=== PATIENT | female | born 1975 | race Hispanic/Latino ===

== ENCOUNTER 2018-07-02 16:10 | Emergency (ER) | payer OTHER ==
[~2018-07-02] VITALS: Ht 160 cm; Wt 83.9 kg
--- OUTSIDE RECORDS SUMMARY | 2018-07-02 16:13 | XMS REPORT | Continuity of Care Document ---
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 [facility] 626.2 - EXCESSIVE MENST Active 06/26/2014 [facility] [place] Anemia Resolved Problem 07/22/2016 [facility] Obesity Active Problem 07/22/2016 [facility] Colon polyps Resolved Problem 07/22/2016 [facility] Apnea, sleep Resolved Problem 07/22/2016 [facility] Medications Medication Details Route Status Patient Instructions Ordering Provider Order Date Source Meperidine 12.5 mg, Route: IVP, Q30Min, Dosing Weight 86.818, kg, PRN Other -See Comment, For shivering, Start date: 07/19/16 10:03:00 CDT, Duration: 2 doses or times, Stop date: Limited # of times No Longer Active 07/19/2016 [facility] Promethazine 6.25 mg, Route: IVPB, ONCE, Dosing Weight 86.818, kg, PRN Nausea & Vomiting, Start date: 07/19/16 10:03:00 CDT No Longer Active 07/19/2016 [facility] Ondansetron 4 mg, Route: IVP, ONCE, Dosing Weight 86.818, kg, PRN Nausea & Vomiting, Start date: 07/19/16 10:03:00 CDT No Longer Active 07/19/2016 [facility] Oxycodone 5 mg, Route: PO, Drug form: TAB, Q4H, Dosing Weight 86.818, kg, PRN Pain Score 4-6, Start date: 07/19/16 10:03:00 CDT, Duration: 30 day, Stop date: 08/18/16 10:02:00 CDT No Longer Active 07/19/2016 [facility] Hydromorphone 0.5 mg, Route: IVP, Q5Min, Dosing Weight 86.818, kg, PRN Pain Score 7-10, Start date: 07/19/16 10:03:00 CDT, Duration: 4 doses or times, Stop date: Limited # of times No Longer Active 07/19/2016 [facility] Flumazenil 0.2 mg, Route: IVP, PRN, Dosing Weight 86.818, kg, PRN Benzodiazepine Reversal, Initial dose, Start date: 07/19/16 10:03:00 CDT, Duration: 30 day, Stop date: 08/18/16 10:02:00 CDT No Longer Active 07/19/2016 [facility] Diphenhydramine 12.5 mg, Route: IVP, Drug form: INJ, Q6H, Dosing Weight 86.818, kg, PRN Itching, Start date: 07/19/16 10:03:00 CDT, Duration: 30 day, Stop date: 08/18/16 10:02:00 CDT No Longer Active 07/19/2016 [facility] Albuterol 0.83 MG/ML Inhalant Solution 2.49 mg, Route: NEB, Q20Min, Dosing Weight 86.818, kg, PRN Wheezing, Priority: STAT, Start date: 07/19/16 10:03:00 CDT, Duration: 30 day, Stop date: 08/18/16 10:02:00 CDT No Longer Active 07/19/2016 [facility] Naloxone 0.4 mg, Route: IVP, Q2MIN, Dosing Weight 86.818, kg, PRN Narcotic Reversal, Start date: 07/19/16 10:03:00 CDT, Duration: 8 doses or times, Stop date: Limited # of times No Longer Active 07/19/2016 [facility] Acetaminophen 1,000 mg, Route: PO, Drug form: TAB, ONCE, Dosing Weight 86.818, kg, PRN Pain Score 1-3, Start date: 07/19/16 10:03:00 CDT, Duration: 1 doses or times, Stop date: Limited # of times No Longer Active 07/19/2016 [facility] esmolol 10 mg, Route: IVP, Q5Min, Dosing Weight 86.818, kg, PRN Other -See Comment, Start date: 07/19/16 10:03:00 CDT, Duration: 5 doses or times, Stop date: Limited # of times No Longer Active 07/19/2016 [facility] Labetalol 10 mg, Route: IVP, Q5Min, Dosing Weight 86.818, kg, PRN Elevated BP, Start date: 07/19/16 10:03:00 CDT, Duration: 5 doses or times, Stop date: Limited # of times No Longer Active 07/19/2016 [facility] Calcium Chloride 0.0014 MEQ/ML / Potassium Chloride 0.004 MEQ/ML / Sodium Chloride 0.103 MEQ/ML / Sodium Lactate 0.028 MEQ/ML Injectable Solution 1,000 mL, Rate: 125 ml/hr, Infuse over: 8 hr, Route: IV, Dosing Weight 86.818 kg, Total Volume: 1,000, Start date: 07/19/16 10:03:00 CDT, Duration: 30 day, Stop date: 08/18/16 10:02:00 CDT No Longer Active 07/19/2016 [facility] Hydralazine 10 mg, Route: IVP, Q20Min, Dosing Weight 86.818, kg, PRN Elevated BP, Start date: 07/19/16 10:03:00 CDT, Duration: 2 doses or times, Stop date: Limited # of times No Longer Active 07/19/2016 [facility] Lactated Ringers Injection IV 500 mL 500 mL, Rate: 25 ml/hr, Infuse over: 20 hr, Route: IV, Dosing Weight 86.818 kg, Total Volume: 500, Start date: 07/19/16 10:01:00 CDT, Duration: 30 day, Stop date: 08/18/16 10:00:00 CDT No Longer Active 07/19/2016 [facility] Albuterol 0.833 MG/ML / Ipratropium [place] 0.167 MG/ML Inhalant Solution 3 mL, Route: NEB, Dosing Weight 86.818, kg, ONCE, STAT, Start date: 07/19/16 9:59:00 CDT, Stop date: 07/19/16 9:59:00 CDT Inactive 07/19/2016 [facility] Calcium Chloride 0.0014 MEQ/ML / Potassium Chloride 0.004 MEQ/ML / Sodium Chloride 0.103 MEQ/ML / Sodium Lactate 0.028 MEQ/ML Injectable Solution 1,000 mL, Rate: 25 ml/hr, Infuse over: 40 hr, Route: IV, Dosing Weight 86.818 kg, Total Volume: 1,000, Start date: 07/19/16 9:59:00 CDT, Duration: 30 day, Stop date: 08/18/16 9:58:00 CDT Inactive 07/19/2016 [facility] hydromorphone (ANES) Route: IV, Drug form: INJ, ONCE, Stop date: 07/19/16 9:56:00 CDT Inactive 07/19/2016 [facility] ketOROLAC (ANES) IV, ONCE Inactive 07/19/2016 [facility] dexamethasone (ANES) Route: IV, Drug form: INJ, ONCE, Stop date: 07/19/16 9:56:00 CDT Inactive 07/19/2016 [facility] fentaNYL (ANES) Route: IV, Drug form: INJ, ONCE, Stop date: 07/19/16 9:56:00 CDT Inactive 07/19/2016 [facility] lidocaine (ANES) Route: IV, Drug form: INJ, ONCE, Stop date: 07/19/16 9:56:00 CDT Inactive 07/19/2016 [facility] propofol (ANES) Route: IV, Drug form: INJ, ONCE, Stop date: 07/19/16 9:56:00 CDT Inactive 07/19/2016 [facility] midazolam (ANES) Route: IV, Drug form: SOLN, ONCE, Stop date: 07/19/16 9:56:00 CDT Inactive 07/19/2016 [facility] ondansetron (ANES) Route: IV, Drug form: INJ, ONCE, Stop date: 07/19/16 9:56:00 CDT Inactive 07/19/2016 [facility] phenylephrine (ANES) Route: IV, Drug form: INJ, ONCE, Stop date: 07/19/16 9:52:00 CDT Inactive 07/19/2016 [facility] LR 500 ml INJ (ANES) Route: IV, Total Volume: 500, Start date: 07/19/16 9:07:00 CDT, Stop date: 07/19/16 10:07:00 CDT Inactive 07/19/2016 [facility] Ketorolac Tromethamine 10 MG Oral Tablet 10 mg=1 tab, PO, Q6H, PRN Pain, # 20 tab, 0 Refill(s) Active 07/19/2016 [facility] Exparel 20 mL, Route: InFILtration(local), Drug Form: INJ, Dosing Weight 86.818, kg, ONCE, For Hemorrhoidectomy, Start date: 07/19/16 7:14:00 CDT, Stop date: 07/19/16 7:14:00 CDTNotes: (Same as: Exparel) NOT FOR IV use Postoperative analgesia: Infiltration (local): Dose is based on surgical site and volume required to cover the area (in general, the maximum total dose is 266 mg). Bunionectomy: 7 mL into the tissues surrounding the osteotomy and 1 mL into the subcutaneous tissue of the surgical site (total dose=8 mL [106 mg]) Hemorrhoidectomy: 30 mL (20 mL vial diluted with 10 mL NS) divided and administered as 6 injections of 5 mL each (total dose=30 mL [266 mg]) Inactive 07/19/2016 [facility] Allergies, Adverse Reactions, Alerts Substance Category Reaction Severity Reaction type Status Date Reported Comments Source aspirin Assertion Severe Drug allergy Active [facility] codeine Assertion Severe Drug allergy Active [facility] iodine Assertion Severe Drug allergy Active [facility] penicillins Assertion Severe Drug allergy Active [facility] Tylenol Assertion Moderate Drug allergy Active [facility] Immunizations Immunization Date Given Site Status Last Updated Comments Source Results Order Name Results Value Reference Range Date Interpretation Comments Source CHEM PANEL eGFR 113 mL/min/1.73m2 07/11/2016 Result Comment: The eGFR is calculated using the CKD-EPI formula. In most young, healthy individuals the eGFR will be >90 mL/min/1.73m2. The eGFR declines with age. An eGFR of 60-89 may be normal in some populations, particularly the elderly, for whom the CKD-EPI formula has not been extensively validated. Use of the eGFR is not recommended in the following populations: Individuals with unstable creatinine concentrations, including patients and those with serious co-morbid conditions. Patients with extremes in muscle mass or diet. The data above are obtained from the National Kidney Disease Education Program (NKDEP) which additionally recommends that when the eGFR is used in patients with extremes of body mass index for purposes of drug dosing, the eGFR should be multiplied by the estimated BMI. [facility] CHEM PANEL Glucose Lvl 85 mg/dL 70 - 99 07/11/2016 [facility] CHEM PANEL BUN 8 mg/dL 7 - 22 07/11/2016 [facility] CHEM PANEL Potassium Lvl 3.6 meq/L 3.5 - 5.1 07/11/2016 [facility] CHEM PANEL Creatinine Lvl 0.60 mg/dL 0.50 - 1.40 07/11/2016 [facility] CHEM PANEL Sodium Lvl 138 meq/L 135 - 145 07/11/2016 [facility] CHEM PANEL CO2 26 meq/L 24 - 32 07/11/2016 [facility] CHEM PANEL Chloride Lvl 105 meq/L 95 - 109 07/11/2016 [facility] CHEM PANEL Albumin Lvl 3.7 g/dL 3.5 - 5.0 07/11/2016 [facility] CHEM PANEL Calcium Lvl 8.1 mg/dL 8.5 - 10.5 07/11/2016 [facility] CHEM PANEL Total Protein 7.9 g/dL 6.4 - 8.4 07/11/2016 [facility] CHEM PANEL ALT 14 unit/L 0 - 65 07/11/2016 [facility] CHEM PANEL AST 13 unit/L 0 - 37 07/11/2016 [facility] CHEM PANEL Alk Phos 80 unit/L 39 - 136 07/11/2016 [facility] CHEM PANEL Bili Total 0.2 mg/dL 0.2 - 1.3 07/11/2016 [facility] CHEM PANEL B/C Ratio 13 6 - 25 07/11/2016 [facility] CHEM PANEL Globulin 4.2 g/dL 2.7 - 4.2 07/11/2016 [facility] CHEM PANEL A/G Ratio 0.9 0.7 - 1.6 07/11/2016 [facility] CHEM PANEL AGAP 10.6 meq/L 10.0 - 20.0 07/11/2016 [facility] HEMATOLOGY Hgb 9.0 g/dL 12.0 - 16.0 07/11/2016 [facility] HEMATOLOGY Hct 28.9 % 36.0 - 48.0 07/11/2016 [facility] URINE AND STOOL UA Urobilinogen <=1.0 mg/dL 0.1 - 1.0 07/11/2016 [facility] URINE AND STOOL UA Color Yellow *NA* (07/11/16 11:57 AM) Yellow 07/11/2016 [facility] URINE AND STOOL UA Leuk Est Negative (07/11/16 11:57 AM) Negative 07/11/2016 [facility] URINE AND STOOL UA Bili Negative *NA* (07/11/16 11:57 AM) Negative 07/11/2016 [facility] URINE AND STOOL UA Ketones Negative mg/dL Negative mg/dL 07/11/2016 [facility] URINE AND STOOL UA Nitrite Negative (07/11/16 11:57 AM) Negative 07/11/2016 [facility] URINE AND STOOL UA Blood Negative (07/11/16 11:57 AM) Negative 07/11/2016 [facility] URINE AND STOOL UA Sq Epi Many /LPF Few /LPF 07/11/2016 [facility] URINE AND STOOL UA Glucose Negative mg/dL Negative mg/dL 07/11/2016 [facility] URINE AND STOOL UA Spec Grav 1.021 <=1.030 07/11/2016 [facility] URINE AND STOOL UA Turbidity Marked *ABN* (07/11/16 11:57 AM) Clear 07/11/2016 [facility] URINE AND STOOL UA Protein Negative mg/dL Negative mg/dL 07/11/2016 [facility] URINE AND STOOL UA pH 7.0 5.0 - 8.0 07/11/2016 [facility] URINE AND STOOL UA RBC 1 /HPF 0 - 2 07/11/2016 [facility] URINE AND STOOL UA WBC 1 /HPF 0 - 5 07/11/2016 [facility] URINE AND STOOL UA Mucus Few /LPF None Seen /LPF 07/11/2016 [facility] Pelvis w Pelvis Transvaginal US Pelvis w Pelvis Transvaginal US PELVIC ULTRASOUND CLINICAL HISTORY: Excessive menses COMPARISON IMAGING: None. TECHNIQUE: Real time transabdominal and transvaginal sonography was performed by an chief technologist. Flight Coordinator static images were submitted for review. FINDINGS: Uterus: Measures 9.8 x 4.8 x 6.2 cm. Endometrial stripe is 16 mm in thickness, upper limits of normal. No distinct uterine mass is identified. Small amount of free pelvic fluid is seen in the cul-de-sac, likely physiologic. Adnexa: Neither ovary is visualized. No evidence of adnexal masses bilaterally. IMPRESSION: 1. Endometrial stripe measures upper limits of normal. No evidence of endometrial mass. 2. Nonvisualization of the bilateral ovaries. 06/30/2014 - - Read by: Eva Leon MD Dictated Date/time: 06/30/14 14:09 Electronically Signed by: Eva Leon MD 06/30/14 14:11 FINAL REPORT [facility] [place] Vital Signs Vital Sign Value Date Comments Source Systolic (mm Hg) 106 07/19/2016 [facility] Diastolic (mm Hg) 40 07/19/2016 [facility] Respitory Rate 12 07/19/2016 [facility] Systolic (mm Hg) 110 07/19/2016 [facility] Diastolic (mm Hg) 49 07/19/2016 [facility] Respitory Rate 11 07/19/2016 [facility] Systolic (mm Hg) 102 07/19/2016 [facility] Diastolic (mm Hg) 71 07/19/2016 [facility] Respitory Rate 20 07/19/2016 [facility] Heart Rate 85 07/19/2016 [facility] BMI Calculated 33.9 07/11/2016 [facility] Weight 86.818 07/11/2016 [facility] Height 160.02 cm 07/11/2016 [facility] Heart Rate 69 07/11/2016 [facility] Temperature Oral (F) 98.3 F 07/11/2016 [facility] Encounters Location Location Details Encounter Type Encounter Number Reason For Visit Attending Provider ADM Date DC Date Status Source [facility] [place] [facility] [id number] Luisa Ritter 06/30/2014 07/01/2014 [facility] [place] Out[facility] [id number] THEODOROS VOLOYIANNIS 06/15/2016 Active [facility] Outpatient [id number] THEODOROS VOLOYIANNIS 07/19/2016 Active [facility] Day Surgery [id number] Theodoros Voloyiannis 07/19/2016 07/19/2016 [facility] Outpatient [id number] IVORY CARTER 07/21/2016 [facility] Outpatient [id number] IVORY CARTER 08/02/2016 Active [facility] Outpatient [id number] IVORY CARTER 11/08/2016 Active [facility] Procedures Procedure Code Date Perfomer Comments Source Operation<sup>1</sup> [id number] 07/19/2016 Transanal hemorrhoidal dearterialization [facility] Ablation<sup>2</sup> [id number] Vaginal [facility] Colonoscopy [id number] [facility] Operation<sup>3</sup> [id number] Gastric Sleeve [facility] Tubal ligation [id number] [facility]
--- OUTSIDE RECORDS SUMMARY | 2018-07-02 16:13 | XMS REPORT | Summary of Care ---
Author Author [facility] Organization [facility] Address Unknown Phone Unavailable Encounter JONO Trujillo(LIV) [id number] Date(s): 07/19/16 - 07/19/16 [facility] [address] [place] [address]- [phone] Discharge Disposition: Home or Self Care Attending Physician: Gurinder Small MD Referring Physician: Gurinder Small MD Vital Signs 1 2 3 Most recent to oldest [Reference Range]: 160.02 cm (07/11/16 11:36 AM) Height 98.3 DegF (07/11/16 11:36 AM) Temperature Oral [96.4-99.1 DegF] 106/40 mmHg (07/19/16 12:15 PM) 110/49 mmHg (07/19/16 11:00 AM) 102/71 mmHg (07/19/16 10:45 AM) Blood Pressure [90-140/60-90 mmHg] 12 BRMIN *LOW* (07/19/16 12:15 PM) 11 BRMIN *LOW* (07/19/16 11:00 AM) 20 BRMIN (07/19/16 10:45 AM) Respiratory Rate [14-20 BRMIN] 85 bpm (07/19/16 9:25 AM) 69 bpm (07/11/16 11:36 AM) Peripheral Pulse Rate [60-100 bpm] 86.818 kg (07/11/16 11:36 AM) Weight 33.9 m2 (07/11/16 11:36 AM) Body Mass Index Problem List Condition Effective Dates Status Health Status Informant Anemia(Confirmed) Resolved Obesity(Confirmed) Active Colon Resolved polyps(Confirmed) Apnea, Resolved sleep(Confirmed) Allergies, Adverse Reactions, Alerts Substance Reaction Severity Status aspirin Severe Active codeine Severe Active iodine Severe Active penicillins Severe Active Tylenol Moderate Active Medications albuterol-ipratropium 2.5-0.5 mg inhalation solution 3 mL, Route: NEB, Dosing Weight 86.818, kg, ONCE, STAT, Start date: 07/19/16 9:5 9:00 CDT, Stop date: 07/19/16 9:59:00 CDT Start Date: 07/19/16 Stop Date: 07/19/16 Status: Ordered ANES acetaminophen 1,000 mg, Route: PO, Drug form: TAB, ONCE, Dosing Weight 86.818, kg, PRN Pain Sc ore 1-3, Start date: 07/19/16 10:03:00 CDT, Duration: 1 doses or times, Stop jagdeep e: Limited # of times Start Date: 07/19/16 Stop Date: 07/20/16 Status: Discontinued ANES albuterol 0.083% inhalation solution 2.49 mg, Route: NEB, Q20Min, Dosing Weight 86.818, kg, PRN Wheezing, Priority: S TAT, Start date: 07/19/16 10:03:00 CDT, Duration: 30 day, Stop date: 08/18/16 10 :02:00 CDT Start Date: 07/19/16 Stop Date: 07/20/16 Status: Discontinued ANES diphenhydrAMINE 12.5 mg, Route: IVP, Drug form: INJ, Q6H, Dosing Weight 86.818, kg, PRN Itching, Start date: 07/19/16 10:03:00 CDT, Duration: 30 day, Stop date: 08/18/16 10:02: 00 CDT Start Date: 07/19/16 Stop Date: 07/20/16 Status: Discontinued ANES esmolol 10 mg, Route: IVP, Q5Min, Dosing Weight 86.818, kg, PRN Other -See Comment, Star t date: 07/19/16 10:03:00 CDT, Duration: 5 doses or times, Stop date: Limited # of times Start Date: 07/19/16 Stop Date: 07/20/16 Status: Discontinued ANES flumazenil 0.2 mg, Route: IVP, PRN, Dosing Weight 86.818, kg, PRN Benzodiazepine Reversal, Initial dose, Start date: 07/19/16 10:03:00 CDT, Duration: 30 day, Stop date: 10:02:00 CDT Start Date: 07/19/16 Stop Date: 07/20/16 Status: Discontinued ANES hydrALAZINE 10 mg, Route: IVP, Q20Min, Dosing Weight 86.818, kg, PRN Elevated BP, Start date : 07/19/16 10:03:00 CDT, Duration: 2 doses or times, Stop date: Limited # of rubén es Start Date: 07/19/16 Stop Date: 07/20/16 Status: Discontinued ANES HYDROmorphone 0.5 mg, Route: IVP, Q5Min, Dosing Weight 86.818, kg, PRN Pain Score 7-10, Start date: 07/19/16 10:03:00 CDT, Duration: 4 doses or times, Stop date: Limited # of times Start Date: 07/19/16 Stop Date: 07/20/16 Status: Discontinued ANES labetalol 10 mg, Route: IVP, Q5Min, Dosing Weight 86.818, kg, PRN Elevated BP, Start date: 07/19/16 10:03:00 CDT, Duration: 5 doses or times, Stop date: Limited # of times Start Date: 07/19/16 Stop Date: 07/20/16 Status: Discontinued ANES meperidine 12.5 mg, Route: IVP, Q30Min, Dosing Weight 86.818, kg, PRN Other -See Comment, F or shivering, Start date: 07/19/16 10:03:00 CDT, Duration: 2 doses or times, Sto p date: Limited # of times Start Date: 07/19/16 Stop Date: 07/20/16 Status: Discontinued ANES naloxone 0.4 mg, Route: IVP, Q2MIN, Dosing Weight 86.818, kg, PRN Narcotic Reversal, Star t date: 07/19/16 10:03:00 CDT, Duration: 8 doses or times, Stop date: Limited # of times Start Date: 07/19/16 Stop Date: 07/20/16 Status: Discontinued ANES ondansetron 4 mg, Route: IVP, ONCE, Dosing Weight 86.818, kg, PRN Nausea & Vomiting, Start date: 07/19/16 10:03:00 CDT Start Date: 07/19/16 Stop Date: 07/20/16 Status: Discontinued ANES oxyCODONE 5 mg, Route: PO, Drug form: TAB, Q4H, Dosing Weight 86.818, kg, PRN Pain Score 4 -6, Start date: 07/19/16 10:03:00 CDT, Duration: 30 day, Stop date: 08/18/16 10: 02:00 CDT Start Date: 07/19/16 Stop Date: 07/20/16 Status: Discontinued ANES promethazine 6.25 mg, Route: IVPB, ONCE, Dosing Weight 86.818, kg, PRN Nausea & Vomiting, Start date: 07/19/16 10:03:00 CDT Start Date: 07/19/16 Stop Date: 07/20/16 Status: Discontinued dexamethasone (ANES) Route: IV, Drug form: INJ, ONCE, Stop date: 07/19/16 9:56:00 CDT Start Date: 07/19/16 Stop Date: 07/19/16 Status: Completed Exparel 20 mL, Route: InFILtration(local), Drug Form: INJ, Dosing Weight 86.818, kg, ONC E, For Hemorrhoidectomy, Start date: 07/19/16 7:14:00 CDT, Stop date: 07/19/16 7 :14:00 CDT Notes: (Same as: Exparel) NOT FOR IV use Postoperative analgesia: Infi ltration (local): Dose is based on surgical site and volume required to cover th e area (in general, the maximum total dose is 266 mg).Bunionectomy: 7 mL into th e tissues surrounding the osteotomy and 1 mL into the subcutaneous tissue of the surgical site (total dose=8 mL [106 mg])Hemorrhoidectomy: 30 mL (20 mL vial dil uted with 10 mL NS) divided and administered as 6 injections of 5 mL each (total dose=30 mL [266 mg]) Start Date: 07/19/16 Stop Date: 07/19/16 Status: Ordered fentaNYL (ANES) Route: IV, Drug form: INJ, ONCE, Stop date: 07/19/16 9:56:00 CDT Start Date: 07/19/16 Stop Date: 07/19/16 Status: Completed hydromorphone (ANES) Route: IV, Drug form: INJ, ONCE, Stop date: 07/19/16 9:56:00 CDT Start Date: 07/19/16 Stop Date: 07/19/16 Status: Completed ketOROLAC (ANES) IV, ONCE Start Date: 07/19/16 Stop Date: 07/19/16 Status: Completed ketOROLAC 10 mg oral tablet 10 mg=1 tab, PO, Q6H, PRN Pain, # 20 tab, 0 Refill(s) Start Date: 07/19/16 Stop Date: 07/24/16 Status: Ordered Lactated Ringers Injection IV 1000 mL 1,000 mL, Rate: 125 ml/hr, Infuse over: 8 hr, Route: IV, Dosing Weight 86.818 kg , Total Volume: 1,000, Start date: 07/19/16 10:03:00 CDT, Duration: 30 day, Stop date: 08/18/16 10:02:00 CDT Start Date: 07/19/16 Stop Date: 07/20/16 Status: Discontinued Lactated Ringers Injection IV 1000 mL 1,000 mL, Rate: 25 ml/hr, Infuse over: 40 hr, Route: IV, Dosing Weight 86.818 kg , Total Volume: 1,000, Start date: 07/19/16 9:59:00 CDT, Duration: 30 day, Stop date: 08/18/16 9:58:00 CDT Start Date: 07/19/16 Stop Date: 07/19/16 Status: Deleted Lactated Ringers Injection IV 500 mL 500 mL, Rate: 25 ml/hr, Infuse over: 20 hr, Route: IV, Dosing Weight 86.818 kg, Total Volume: 500, Start date: 07/19/16 10:01:00 CDT, Duration: 30 day, Stop jagdeep e: 08/18/16 10:00:00 CDT Start Date: 07/19/16 Stop Date: 07/20/16 Status: Discontinued lidocaine (ANES) Route: IV, Drug form: INJ, ONCE, Stop date: 07/19/16 9:56:00 CDT Start Date: 07/19/16 Stop Date: 07/19/16 Status: Completed LR 500 ml INJ (ANES) Route: IV, Total Volume: 500, Start date: 07/19/16 9:07:00 CDT, Stop date: 07/19 10:07:00 CDT Start Date: 07/19/16 Stop Date: 07/19/16 Status: Completed midazolam (ANES) Route: IV, Drug form: SOLN, ONCE, Stop date: 07/19/16 9:56:00 CDT Start Date: 07/19/16 Stop Date: 07/19/16 Status: Completed ondansetron (ANES) Route: IV, Drug form: INJ, ONCE, Stop date: 07/19/16 9:56:00 CDT Start Date: 07/19/16 Stop Date: 07/19/16 Status: Completed phenylephrine (ANES) Route: IV, Drug form: INJ, ONCE, Stop date: 07/19/16 9:52:00 CDT Start Date: 07/19/16 Stop Date: 07/19/16 Status: Completed propofol (ANES) Route: IV, Drug form: INJ, ONCE, Stop date: 07/19/16 9:56:00 CDT Start Date: 07/19/16 Stop Date: 07/19/16 Status: Completed Results ELECTROLYTES Most recent to 1 oldest [Reference Range]: Sodium Lvl [135-145 138 mEq/L mEq/L] (07/11/16 11:57 AM) Potassium Lvl 3.6 mEq/L [3.5-5.1 mEq/L] (07/11/16 11:57 AM) Chloride Lvl [95-109 105 mEq/L mEq/L] (07/11/16 11:57 AM) CO2 [24-32 mEq/L] 26 mEq/L (07/11/16 11:57 AM) AGAP [10.0-20.0 10.6 mEq/L mEq/L] (07/11/16 11:57 AM) CHEM PANEL Most recent to 1 oldest [Reference Range]: Creatinine Lvl 0.60 mg/dL [0.50-1.40 mg/dL] (07/11/16 11:57 AM) eGFR 113 mL/min/1.73m2 1 *NA* (07/11/16 11:57 AM) BUN [7-22 mg/dL] 8 mg/dL (07/11/16 11:57 AM) B/C Ratio [6-25] 13 (07/11/16 11:57 AM) Glucose Lvl [70-99 85 mg/dL mg/dL] (07/11/16:57 AM) Total Protein 7.9 g/dL [6.4-8.4 g/dL] (07/11/16 11:57 AM) Albumin Lvl [3.5-5.0 3.7 g/dL g/dL] (07/11/16:57 AM) Globulin [2.7-4.2 4.2 g/dL g/dL] (07/11/16 11:57 AM) A/G Ratio [0.7-1.6] 0.9 (07/11/16:57 AM) Calcium Lvl 8.1 mg/dL [8.5-10.5 mg/dL] *LOW* (07/11/16:57 AM) ALT [0-65 unit/L] 14 unit/L (07/11/16:57 AM) AST [0-37 unit/L] 13 unit/L (07/11/16 11:57 AM) Alk Phos [39-136 80 unit/L unit/L] (07/11/16 11:57 AM) Bili Total [0.2-1.3 0.2 mg/dL mg/dL] (07/11/16 11:57 AM) 1Result Comment: The eGFR is calculated using the [...] from the National Kid[employer] Education Program ( NKDEP) which additionally recommends that when the eGFR is used in patients with extremes of body mass index for purposes of drug dosing, the eGFR should be mul tiplied by the estimated BMI. URINE AND STOOL Most recent to 1 oldest [Reference Range]: UA Turbidity [Clear] Marked *ABN* (07/11/16 11:57 AM) UA Color [Yellow] Yellow *NA* (07/11/16 11:57 AM) UA pH [5.0-8.0] 7.0 (07/11/16 11:57 AM) UA Spec Grav 1.021 [<=1.030] (07/11/16 11:57 AM) UA Glucose [Negative Negative mg/dL mg/dL] *NA* (07/11/16 11:57 AM) UA Blood [Negative] Negative (07/11/16 11:57 AM) UA Ketones [Negative Negative mg/dL mg/dL] *NA* (07/11/16 11:57 AM) UA Protein [Negative Negative mg/dL mg/dL] (07/11/16 11:57 AM) UA Urobilinogen <=1.0 mg/dL [0.1-1.0 mg/dL] *NA* (07/11/16 11:57 AM) UA Bili [Negative] Negative *NA* (07/11/16 11:57 AM) UA Leuk Est Negative [Negative] (07/11/16 11:57 AM) UA Nitrite Negative [Negative] (07/11/16 11:57 AM) UA WBC [0-5 /HPF] 1 /HPF (07/11/16 11:57 AM) UA RBC [0-2 /HPF] 1 /HPF (07/11/16 11:57 AM) UA Sq Epi [Few /LPF] Many /LPF *ABN* (07/11/16 11:57 AM) UA Mucus [None Seen Few /LPF /LPF] *NA* (07/11/16 11:57 AM) HEMATOLOGY Most recent to 1 oldest [Reference Range]: Hgb [12.0-16.0 g/dL] 9.0 g/dL *LOW* (07/11/16 11:57 AM) Hct [36.0-48.0 %] 28.9 % *LOW* (07/11/16 11:57 AM) Immunizations No data available for this section Procedures Procedure Date Related Diagnosis Body Site Operation1 07/19/16 Ablation2 Colonoscopy Operation3 Tubal ligation 1Transanal hemorrhoidal dearterialization 2Vaginal 3Gastric Sleeve Social History Social History Type Response Smoking Status Never smoker; Exposure to Tobacco Smoke None; Cigarette Smoking Last 365 Days No; Reg Smoking Cessation Counseling No Assessment and Plan Extracted from: Title: Clinical Document Author: Gurinder Small MD Date: 07/19/16 PREOPERATIVE DIAGNOSIS: Rectal bleeding internal hemorrhoid with prolapse and bleeding. POSTOPERATIVE DIAGNOSIS: Rectal bleeding internal hemorrhoid with prolapse and bleeding. PROCEDURE Transanal hemorrhoidal dearterialization. SURGEON: Dr. Small NUTRITIONAL CHEMIST: None ANESTHESIA: General IV FLUIDS: 300 mL URINE OUTPUT: No Mercado. ESTIMATED BLOOD LOSS: 10 cc COMPLICATIONS: None FINDINGS: Grade III internal hemorrhoids and no sites of active bleeding was noted. DISPOSITION: Tolerated the procedure well, extubated in the operating room and transferred to postop anesthesia care unit in stable hemodynamic condition. COUNTS: Needle, sponge and correct x 2. INDICATIONS FOR PROCEDURE: The patient is a 41-year-old woman who presents for a transanal hemorrhoidal dearterialization procedure for chronically prolapsing and bleeding internal hemorrhoids. Informed consent was obtained. All questions were answered to her satisfaction. PROCEDURE IN DETAIL: The patient was brought to the operating room, placed on the table in supine position. General endotracheal anesthesia was induced successfully. Subsequently, the patient was placed on candy canes in the lithotomy position and the perineum was prepped and draped in usual standard sterile fashion. Using the transanal hemorrhoidal dearterialization kit, we identified six arterial signals at 1:00, 3:00, 6:00, 7:00, 9:00 and 11:00 respectively. At 4 cm above the dentate line, we placed a 2-0 Vicryl in a [id number] fashion under Doppler ultrasound guidance and confirmed cessation of the arterial signal in each side. Subsequently, we ran each suture over the prolapsing internal hemorrhoidal mucosa up to a centimeter above the dentate line and incorporating the friable internal hemorrhoids with bleeding. We retracted each hemorrhoid back to the distal rectum and performed a hemorrhoidopexy and mucopexy and confirmed complete hemostasis and a mucopexy of each hemorrhoid. Surgicel was left in place. One vial of Exparel was injected for local anesthesia. The Exparel was diluted with 10 mL of normal saline. The procedure was completed. Extracted from: Title: preop Author: Carolee Gordon, MPH, Date: 07/19/16 [place] Assessment/Plan I recommend to proceed with transanal hemorrhoidal derarterialization (THD) and she desires to proceed The patient agrees to proceed with the procedure. Risks, benefits and alternatives to the procedure were discussed in great detail. The patient will schedule the procedure in the near future. All questions were answered to the patient s satisfaction [3] Addendum by No change in the patient's condition since he was last seen in clinic. Gurinder Bhatt MD on 07/19/2016 07:44 CDT
--- OUTSIDE RECORDS SUMMARY | 2018-07-02 16:13 | XMS REPORT | Summary of Care ---
Author Organization Unknown Address Unknown Phone Unavailable Encounter [facility] Encntr_magui(LIV) [id number] Date(s): 06/30/14 - 06/30/14 [facility] Outpatient Imaging - [address] [phone] Discharge Disposition: Home Physician Attending: Luisa Ritter MD Vital Signs No data available for this section Problem List No data available for this section Allergies, Adverse Reactions, Alerts No data available for this section Medications No data available for this section Results No data available for this section Immunizations No data available for this section Procedures No data available for this section Social History No data available for this section Assessment and Plan No data available for this section
[2018-07-02] MEDS ORDERED: TETANUS/DIPHTHERIA TOX ADULT 0.5 ML SYR IM ONE (16:15)
[2018-07-02] MEDS ORDERED: LIDOCAINE HCL 1% LOCAL INJ 20 ML VIAL INJ ONE (16:15)
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
== END 2018-07-02 17:54 | disposition home or self-care (01) ==
LOC: ER 16:10
DX: S61.412A Laceration without foreign body of left hand, initial encounter (principal); W25.XXXA Contact with sharp glass, initial encounter; Y92.008 Other place in unspecified non-institutional (private) residence as the place of occurrence of the external cause
CPT/HCPCS: 90471; 90714; 99284

== ENCOUNTER 2021-11-24 12:04 | Observation (INO) | payer OTHER ==
[~2021-11-24] VITALS: Ht 160 cm; Wt 85.9 kg
[2021-11-24] MEDS ORDERED: SODIUM CHLORIDE FLUSH 10 ML SYR INJ PRN (14:00)
[2021-11-24] MEDS ORDERED: ONDANSETRON HCL INJ 2MG/ML 2ML 2 MG/ML VIAL IV PRN (14:00)
[2021-11-24] MEDS ORDERED: NITROGLYCERIN 0.4 MG SUBL SL PRN (14:00)
[2021-11-24] MEDS ORDERED: Morphine 2mg Syringe 2 MG/ML SYR IV PRN (14:00)
[2021-11-24] MEDS ORDERED: SODIUM CHLORIDE 0.9% 1000ML 1,000 ML ONE (14:28)
[2021-11-24] MEDS ORDERED: SODIUM CHLORIDE 0.9% 1000ML 1,000 ML IV ONE (14:30)
[2021-11-24] MEDS ORDERED: KETOROLAC TROMETHAMINE 30 MG/ML VIAL ONE (15:56)
[2021-11-24 16:40] VITALS: BP 126/67
[2021-11-24 17:00] VITALS: BP 126/67
[2021-11-24] MEDS ORDERED: NEXIUM40 MG PO (17:23)
[2021-11-24] MEDS ORDERED: ADDERALL 30 MG30 MG PO (17:23)
[2021-11-24 18:49] LABS: CREATINE KINASE 59 IU/L (29-168)
[2021-11-24 20:00] VITALS: BP 116/70
[2021-11-24 21:00] VITALS: BP 116/70
[2021-11-25] VITALS: BP 127/64
[2021-11-25 02:36] LABS: CREATINE KINASE 55 IU/L (29-168)
[2021-11-25 04:15] VITALS: BP 107/68
[2021-11-25 07:18] LABS: BASOPHILS # (AUTO) 0.1 (0.0-0.1); BASOPHILS % 0.9 % (0.0-1.0); EOSINOPHILS # (AUTO) 0.1 (0.0-0.4); EOSINOPHILS % 1.2 % (0.0-6.0); HEMATOCRIT 33.9 % (34.2-44.1); HEMOGLOBIN 10.7 g/dL (12.0-16.0); LYMPHOCYTES # (AUTO) 2.4 (1.0-3.2); LYMPHOCYTES % 36.7 % (18.0-39.1); MEAN CORPUSCULAR HEMOGLOBIN 26.8 pg (28-32); MEAN CORPUSCULAR HGB CONC 31.6 g/dL (31-35); MEAN CORPUSCULAR VOLUME 84.8 fL (81-99); MONOCYTES # (AUTO) 0.7 (0.2-0.8); MONOCYTES % 10.6 % (4.4-11.3); NEUTROPHILS # (AUTO) 3.3 (2.1-6.9); NEUTROPHILS % 50.3 % (38.7-80.0); PLATELET COUNT 306 x10e3/uL (140-360); RED CELL DISTRIBUTION WIDTH 20.9 % (11.7-14.4)
[2021-11-25 08:00] VITALS: BP 107/68
[2021-11-25 08:01] VITALS: BP 124/75
[2021-11-25 08:09] LABS: ALBUMIN 3.4 g/dL (3.5-5.0); ANION GAP 9.5 mmol/L (8-16); CALCIUM 8.2 mg/dL (8.4-10.2); CREATININE, SERUM 0.68 mg/dL (0.57-1.11); POTASSIUM 3.5 mmol/L (3.5-5.1)
[2021-11-25 08:27] LABS: CHOL/HDL RATIO 3.3 (3.0-3.6)
[2021-11-25 09:10] LABS: FERRITIN 236.25 ng/mL (4.63-204.00)
[2021-11-25] MEDS ORDERED: ONDANSETRON HCL 4 MG ORAL DISINTEGRATING TAB PO PRN (10:00)
[2021-11-25] MEDS ORDERED: PANTOPRAZOLE SOD 40 MG TABEC PO SCH (16:30)
== END 2021-11-25 11:00 | disposition home or self-care (01) ==
LOC: FSED 12:23 → ERHOLD 13:56 → MED/SURG2 16:51
PROVIDERS: ADMIT Family Medicine; ATTEND Family Medicine
DX: K21.9 Gastro-esophageal reflux disease without esophagitis (principal); Z86.711 Personal history of pulmonary embolism; Z79.01 Long term (current) use of anticoagulants; Z86.718 Personal history of other venous thrombosis and embolism; Z20.822 Contact with and (suspected) exposure to COVID-19; Z86.16 Personal history of COVID-19; Z88.6 Allergy status to analgesic agent; Z88.1 Allergy status to other antibiotic agents; Z88.5 Allergy status to narcotic agent; Z88.0 Allergy status to penicillin; D50.9 Iron deficiency anemia, unspecified
CPT/HCPCS: 36415; 71046; 78580; 80053 ×2; 80061; 81025; 82550 ×2; 82553 ×2; 82728; 83540; 84484 ×2; 85025 ×2; 85379; 93005; 93306; 99284; A9540; C9113; G0378 ×2; J1885; J2270; J7030; U0002